=== PATIENT | male | born 2005 | race Caucasian/White ===

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

== ENCOUNTER 2023-09-18 07:45 | Outpatient (CLI) | payer OTHER, SELFPAY ==
--- NOTE | 2023-09-18 08:03 | US_ITS ---
WS: [id number] ULTRASOUND SOFT TISSUES RIGHT lower back. HISTORY: LYMPHADENOPATHY L LOWER BACK COMPARISON: None available. TECHNIQUE: 2-D and color Doppler imaging is submitted. Palpable area along the posterior RIGHT lower back corresponds to a hyperechoic soft tissue nodule me asuring 0.9 x 0.6 x 0.8 cm. No increased vascularity. US/US soft tissue/extremity [id number] IMPRESSION: Hyperechoic nodule posterior RIGHT lower back is most consistent with a lipoma.
== END 2023-09-18 08:01 | disposition home or self-care (01) ==
PROVIDERS: PCP Nurse Practitioner Family; Visit Provider Nurse Practitioner Family
DX: R59.1 Generalized enlarged lymph nodes (principal); M79.89 Other specified soft tissue disorders
CPT/HCPCS: 76882